=== PATIENT | male | born 1975 | race Caucasian/White ===

== ENCOUNTER 2016-10-12 19:00 | Emergency (ER) | payer SELFPAY ==
[2016-10-12] MEDS ORDERED: ASPIRIN 81 MG TABLET, CHEWABLE PO ONE ×2 (19:42→19:43)
--- NOTE | 2016-10-12 20:46 | RADIOLOGY REPORT (SQ) ---
EXAM DESCRIPTION: CHEST SINGLE VIEW COMPLETED DATE/TIME: 10/12/2016 8:36 pm REASON FOR STUDY: PAIN COMPARISON: None. EXAM PARAMETERS: NUMBER OF VIEWS: One view. TECHNIQUE: Single frontal radiographic view of the chest acquired. RADIATION DOSE: NA LIMITATIONS: None. FINDINGS: LUNGS AND PLEURA: No opacities, masses or pneumothorax. No pleural effusion. MEDIASTINUM AND HILAR STRUCTURES: No masses. Contour normal. HEART AND VASCULAR STRUCTURES: Heart normal in size. Normal vasculature. BONES: No acute findings. HARDWARE: None in the chest. OTHER: No other significant finding. IMPRESSION: NO ACUTE RADIOGRAPHIC FINDING IN THE CHEST. TECHNICAL DOCUMENTATION: JOB ID: [id number]
[2016-10-12 22:11] LABS: ABSOLUTE EOSINOPHILS # (AUTO) 0.2 10^3/uL (0.0-0.6); ABSOLUTE MONOCYTES (AUTO) 0.7 10^3/uL (0.1-1.4); ABSOLUTE NEUT (AUTO) 2.7 10^3/uL (1.7-8.2); BASOPHILS % (AUTO) 0.6 % (0-2); EOSINOPHILS % (AUTO) 4.3 % (0-6); HEMATOCRIT 41.1 % (37.9-51.0); HEMOGLOBIN 13.4 g/dL (13.5-17.0); HGB HCT DIFFERENCE -0.9; LYMPHOCYTES % (AUTO) 35.4 % (13-45); MEAN CORPUSCULAR HEMOGLOBIN 29.1 pg (27.0-33.4); MEAN CORPUSCULAR HGB CONC 32.5 g/dL (32.0-36.0); MEAN CORPUSCULAR VOLUME 90 fl (80-97); MONOCYTES % (AUTO) 11.9 % (3-13); RED BLOOD COUNT 4.59 10^6/uL (4.35-5.55); SEGMENTED NEUTROPHILS % (AUTO) 47.8 % (42-78); WHITE BLOOD COUNT 5.6 10^3/uL (4.0-10.5)
[2016-10-12 22:34] LABS: ALANINE AMINOTRANSFERASE 314 U/L (21-72); ALBUMIN 4.2 g/dL (3.5-5.0); ALKALINE PHOSPHATASE 101 U/L (38-126); ANION GAP 12 (5-19); ASPARTATE AMINO TRANSFERASE 176 U/L (17-59); BILIRUBIN,DIRECT 0.4 mg/dL (0.0-0.4); BILIRUBIN,TOTAL 0.9 mg/dL (0.2-1.3); BLOOD UREA NITROGEN 11 mg/dL (7-20); CALCIUM 9.3 mg/dL (8.4-10.2); CARBON DIOXIDE 25 mmol/L (22-30); CHLORIDE 104 mmol/L (98-107); CREATINE KINASE 59 U/L (55-170); CREATININE RESULT 0.71 mg/dL (0.52-1.25); GLUCOSE 75 mg/dL (75-110); POTASSIUM 4.5 mmol/L (3.6-5.0); SODIUM 140.8 mmol/L (137-145); TOTAL PROTEIN 7.3 g/dL (6.3-8.2)
[2016-10-12 22:47] LABS: TROPONIN I < 0.012 ng/mL
--- NOTE | 2016-10-13 01:53 | RADIOLOGY REPORT (SQ) ---
EXAM DESCRIPTION: U/S ABDOMEN LIMITED W/O DOP COMPLETED DATE/TIME: 10/13/2016 1:35 am REASON FOR STUDY: elevated lfts, epigastric pain COMPARISON: None. TECHNIQUE: Dynamic and static grayscale images acquired of the abdomen and recorded on PACS. Additio nal selected color Doppler and spectral images recorded. LIMITATIONS: None. FINDINGS: PANCREAS: No masses. Visualized pancreatic duct normal caliber. LIVER: No masses. Echotexture normal. LIVER VASCULATURE: Normal directional flow of the main portal vein and hepatic veins. GALLBLADDER: Small gallbladder sludge. The Normal wall thickness. No pericholecystic fluid. ULTRASOUND-DETECTED WATTS'S SIGN: Negative. INTRAHEPATIC DUCTS AND COMMON DUCT: CBD and intrahepatic ducts normal caliber. No filling defects. INFERIOR VENA CAVA: Normal flow. AORTA: No aneurysm. RIGHT KIDNEY: Normal size. Normal echogenicity. No solid or suspicious masses. No hydronephrosis. No calcifications. PERITONEAL AND RIGHT PLEURAL SPACE: No ascites or effusions. OTHER: No other significant findings. IMPRESSION: No acute findings. Gallbladder sludge. TECHNICAL DOCUMENTATION: JOB ID: [id number]- All Rights Reserved
[2016-10-13] MEDS ORDERED: MAG HYDROX/AL HYDROX/SIMETH SUSP 30 ML UDCUP PO ONE (02:03)
[2016-10-13] MEDS ORDERED: LIDOCAINE 2% VISCOUS SOLN 20 ML UDCUP PO ONE (02:03)
[2016-10-13] MEDS ORDERED: FAMOTIDINE 20 MG TABLET PO ONE (02:03)
[2016-10-13] MEDS ORDERED: METOCLOPRAMIDE HCL ORAL SOLN 10 MG/10 ML UDCUP PO ONE (02:03)
--- NOTE | 2016-10-13 02:04 | ER Document Report ---
ED General - General Chief Complaint: Chest Pain > 30 Stated Complaint: CHEST PAIN Time Seen by Provider: 10/13/16 00:14 Notes: Patient is a 41-year-old male, active tobacco smoker, no other past medical history who presents with 2 weeks of intermittent epigastric and right lower quadrant abdominal pain that radiates into his chest. Describes as a burning, aching pain. Notes it is worsened by eating. He has tried Tylenol any improvement of his symptoms. No history of similar symptoms in the past. He has not seen his primary care doctor regarding today's concerns. He denies any cardiac history or history of DVT or pulmonary embolus. He denies any vomiting or diarrhea. No prior history of abdominal surgeries. TRAVEL OUTSIDE OF THE [place] IN LAST 30 DAYS: No Past Medical History - General Information source: Patient - Social History Smoking Status: Current Every Day Smoker Frequency of alcohol use: Occasional Drug Abuse: None Lives with: Spouse/Significant other Family History: Reviewed & Not Pertinent Patient has suicidal ideation: No Patient has homicidal ideation: No Renal/ Medical History: Denies: Hx Peritoneal Dialysis Review of Systems - Review of Systems Notes: Constitutional: Negative for fever. HENT: Negative for sore throat. Eyes: Negative for visual changes. Cardiovascular: Positive for chest pain. Respiratory: Negative for shortness of breath. Gastrointestinal: Positive for abdominal pain, negative for vomiting or diarrhea. Genitourinary: Negative for dysuria. Musculoskeletal: Negative for back pain. Skin: Negative for rash. Neurological: Negative for headaches, weakness or numbness. 10 point ROS negative except as marked above and in HPI. Physical Exam - Vital signs Vitals: Temp Pulse Resp BP Pulse Ox 97.5 F 80 16 120/83 97 10/12/16 19:41 10/12/16 19:41 10/12/16 19:41 10/12/16 19:41 10/12/16 19:41 Interpretation: Normal Notes: PHYSICAL EXAMINATION: GENERAL: Well-appearing, well-nourished and in no acute distress. HEAD: Atraumatic, normocephalic. EYES: Pupils equal round and reactive to light, extraocular movements intact, sclera anicteric, conjunctiva are normal. ENT: nares patent, oropharynx clear without exudates. Moist mucous membranes. NECK: Normal range of motion, supple without lymphadenopathy LUNGS: Breath sounds clear to auscultation bilaterally and equal. No wheezes rales or rhonchi. HEART: Regular rate and rhythm without murmurs ABDOMEN: Soft, mild epigastric tenderness on palpation, normoactive bowel sounds. No guarding, no rebound. No masses appreciated. EXTREMITIES: Normal range of motion, no pitting or edema. No cyanosis. NEUROLOGICAL: No focal neurological deficits. Moves all extremities spontaneously and on command. PSYCH: Normal mood, normal affect. SKIN: Warm, Dry, normal turgor, no rashes or lesions noted. Course - Re-evaluation Re-evalutation: 10/13/16 02:04 Presentation of chest pain in an otherwise well appearing patient. Low clinical suspicion for ACS given clinical history, exam, EKG without ST elevations or depressions, and negative initial troponin. HEART score less than or equal to 3. PE also seems unlikely given clinical history, absence of tachycardia or dyspnea. Patient is PERC criteria negative. CXR without evidence of pneumothorax or pneumonia. No widened mediastinum. Aortic dissection also seems unlikely given history, symmetric pulses, CXR, and vitals. Overall history of epigastric abdominal pain with associated reflux symptoms most consistent with likely gastritis. Right upper quadrant ultrasound does not demonstrate any evidence of acute cholecystitis or cholelithiasis. Lipase is normal. Mild LFT elevations which patient reports could be related to prior problem drinking. Based on history and exam, I do not suspect ACS, pulmonary embolus, SBO, mesenteric ischemia, acute pancreatitis, biliary pathology, or an abdominal aortic dissection. Patient has had improvement of symptoms here with a GI cocktail. At this time will discharge with return precautions and follow-up recommendations. Verbal discharge instructions given a the bedside and opportunity for questions given. Medication warnings reviewed. Patient is in agreement with this plan and has verbalized understanding of return precautions and the need for primary care follow-up in the next 24-72 hours. HEART Score: History:0 EC Age:0 Risk Factors:1 Troponin:0 Total: 1 - Vital Signs Vital signs: Temp Pulse Resp BP Pulse Ox 98.1 F 68 20 132/68 H 100 10/13/16 02:57 10/13/16 02:57 10/13/16 02:57 10/13/16 02:57 10/13/16 02:57 - Laboratory Result Diagrams: 10/12/16 21:30 10/12/16 21:30 Laboratory results interpreted by me: 10/12/16 10/12/16 21:30 21:30 Hgb 13.4 L RDW 18.0 H AST 176 H ALT 314 H - Diagnostic Test Radiology reviewed: Image reviewed, Reports reviewed Radiology results interpreted by me: 10/13/16 02:04 Chest x-ray: No acute infiltrate or pneumothorax - EKG Interpretation by Me Additional EKG results interpreted by me: 10/13/16 03:28 Sinus bradycardia. Rate 59. No ST elevations or depressions. QTC is 405. Discharge - Discharge Clinical Impression: Upper abdominal pain Condition: Good Disposition: HOME, SELF-CARE Additional Instructions: Your symptoms appear to be most consistent with stomach or upper intestinal irritation. Your evaluation here today has not demonstrated an alternative cause for your symptoms. Please begin taking famotidine 40 mg in the morning and 40 mg at night. This medicine can be purchased directly [id number]. You may also take medicine such as Pepto-Bismol or Tums to assist with your pain. Please follow closely with your primary care doctor in the next 24-48 hours regarding today's emergency department visit. Please return immediately if you develop persistent vomiting, worsening pain, again having bloody bowel movements, develop a fever greater than 100.4F, or have any other symptoms that are worrisome to you.
[2016-10-13 02:13] LABS: ADD ON TESTING BLD IN LAB ACKNOWLEDGE
[2016-10-13 02:22] LABS: LIPASE 166.6 U/L (23-300)
[2016-10-13 02:58] VITALS: BP 132/68
--- NOTE | 2016-10-13 09:12 | EKG REPORT ---
SEVERITY:- OTHERWISE NORMAL ECG - SINUS RHYTHM BORDERLINE LEFT AXIS DEVIATION : Confirmed by: Emily Delarosa MD 13-Oct-2016 09:11:50
--- NOTE | 2016-10-13 09:12 | EKG REPORT ---
SEVERITY:- NORMAL ECG - SINUS RHYTHM : Confirmed by: Emily Delarosa MD 13-Oct-2016 09:11:53
== END 2016-10-13 02:56 | disposition home or self-care (01) ==
LOC: ER 19:00
DX: R10.10 Upper abdominal pain, unspecified (principal); R07.9 Chest pain, unspecified; R10.13 Epigastric pain; R10.31 Right lower quadrant pain; F17.200 Nicotine dependence, unspecified, uncomplicated
CPT/HCPCS: 93005; 99285; 36415; 82553; 82550; 83690; 85025; 80053; 84484; 71010; 76705; 93010; J3490

== ENCOUNTER 2016-10-14 09:57 | Emergency (ER) | payer SELFPAY ==
[2016-10-14] MEDS ORDERED: ASPIRIN 81 MG TABLET, CHEWABLE PO ONE (10:24)
--- NOTE | 2016-10-14 10:54 | ER Document Report ---
ED Medical Screen (RME) - General Chief Complaint: Chest Pain Stated Complaint: CHEST PAIN Time Seen by Provider: 10/14/16 10:50 Mode of Arrival: Ambulatory Information source: Patient Notes: 41-year-old male who was recently here and had negative cardiac enzymes 2 presents with complaints of indigestion and right-sided abdominal and chest pain. Patient notes pain worsens with eating movement I have greeted and performed a rapid initial assessment of this patient. A comprehensive ED assessment and evaluation of the patient, analysis of test results and completion of the medical decision making process will be conducted by additional ED providers. PHYSICAL EXAMINATION: GENERAL: Well-appearing, well-nourished and in no acute distress. HEAD: Atraumatic, normocephalic. EYES: Pupils equal round extraocular movements intact, conjunctiva are normal. ENT: Nares patent NECK: Normal range of motion LUNGS: No respiratory distress Musculoskeletal: Normal range of motion NEUROLOGICAL: Normal speech, normal gait. PSYCH: Normal mood, normal affect. SKIN: Warm, Dry, normal turgor, no rashes or lesions noted. TRAVEL OUTSIDE OF THE [place] IN LAST 30 DAYS: No - Related Data Allergies/Adverse Reactions: No Known Allergies Allergy (Unverified 10/14/16 10:21) Past Medical History - Social History Frequency of alcohol use: None Drug Abuse: None Renal/ Medical History: Denies: Hx Peritoneal Dialysis Past Surgical History: Reports: Hx Orthopedic Surgery - Left knee, right ankle, right elbow
[2016-10-14 12:00] LABS: ALANINE AMINOTRANSFERASE 366 U/L (21-72); ALBUMIN 4.9 g/dL (3.5-5.0); ALKALINE PHOSPHATASE 106 U/L (38-126); ANION GAP 12 (5-19); ASPARTATE AMINO TRANSFERASE 228 U/L (17-59); BILIRUBIN,DIRECT 0.3 mg/dL (0.0-0.4); BILIRUBIN,TOTAL 1.2 mg/dL (0.2-1.3); BLOOD UREA NITROGEN 8 mg/dL (7-20); CALCIUM 10.3 mg/dL (8.4-10.2); CARBON DIOXIDE 29 mmol/L (22-30); CHLORIDE 104 mmol/L (98-107); CREATINE KINASE 45 U/L (55-170); CREATININE RESULT 0.76 mg/dL (0.52-1.25); GLUCOSE 68 mg/dL (75-110); POTASSIUM 4.7 mmol/L (3.6-5.0); SODIUM 144.5 mmol/L (137-145); TOTAL PROTEIN 8.5 g/dL (6.3-8.2)
[2016-10-14] MEDS ORDERED: KETOROLAC TROMETHAMINE 60 MG/2 ML SDV IM ONE (12:09)
[2016-10-14 12:12] LABS: CREATINE KINASE MB 0.37 ng/mL (<4.55)
[2016-10-14 12:16] LABS: TROPONIN I < 0.012 ng/mL
--- NOTE | 2016-10-14 12:16 | ER Document Report ---
ED General - General Chief Complaint: Chest Pain Stated Complaint: CHEST PAIN Time Seen by Provider: 10/14/16 10:50 Mode of Arrival: Ambulatory Information source: Patient Notes: Presents emergency department with complaints of right-sided chest pain that radiates up to his shoulder. Patient was evaluated and treated for same symptoms 2 days ago here in the emergency department. He reports the pain comes and goes. He reports dull ache constantly with times of sharp spikes. He reports that sharp pain in the front and the back on his right side. He also reports that it hurts to laugh and cough. He reports the pain increases whenever he tries to eat. 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 Patient also reports he is a heavy drinker. He recently moved here from [place] to be requested to start tomorrow with his brother. He reports he has developed waking one time since he arrived. Patient is laughing in no distress. 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 He reports he has done this for many years without problems. Denies recent trauma. TRAVEL OUTSIDE OF THE [place] IN LAST 30 DAYS: No - HPI Onset: Other Onset/Duration: Persistent Quality of pain: Dull, Sharp Severity: Severe Pain Level: 4 Associated symptoms: Nausea Exacerbated by: Coughing, Deep breathing, Other - laughing Relieved by: Denies Similar symptoms previously: Yes Recently seen / treated by doctor: Yes - Related Data Allergies/Adverse Reactions: No Known Allergies Allergy (Unverified 10/14/16 10:21) Past Medical History - General Information source: Patient - Social History Smoking Status: Current Every Day Smoker Frequency of alcohol use: None Drug Abuse: None Lives with: Family - brother Family History: Reviewed & Not Pertinent Patient has suicidal ideation: No Patient has homicidal ideation: No Renal/ Medical History: Denies: Hx Peritoneal Dialysis Psychiatric Medical History: Reports: Other - TBI Past Surgical History: Reports: Hx Orthopedic Surgery - Left knee, right ankle, right elbow Review of Systems - Review of Systems Notes: Review HPI for review of systems., All other systems negative Physical Exam - Vital signs Vitals: Pulse Ox 98 10/14/16 11:30 - Notes Notes: PHYSICAL EXAMINATION: GENERAL: No acute distress HEAD: Atraumatic, normocephalic. EYES: Pupils equal round and reactive to light, extraocular movements intact, sclera anicteric, conjunctiva are normal. ENT: nares patent, +dental decay. Moist mucous membranes. NECK: Normal range of motion, supple without lymphadenopathy LUNGS: CTAB and equal. No wheezes rales or rhonchi. nontender to palpation HEART: Regular rate and rhythm without murmurs ABDOMEN: Soft, RUQ, epigastric tenderness. No guarding, no rebound BACK: Denies pain with palpation EXTREMITIES: Normal range of motion, no pitting edema. No cyanosis. NEUROLOGICAL: Cranial nerves grossly intact. Normal sensory/motor exams. PSYCH: Normal mood, normal affect. SKIN: Warm, Dry, normal turgor, no rashes or lesions noted Course - Re-evaluation Re-evalutation: 10/14/16 13:00 Symptoms consistent with gallbladder disease. Ultrasound notes gallbladder sludge. AST ALT elevated today. Patient instructed on LABS. INSTRUCTED ON bentyl, LOW-FAT DIET IMPORTANCE OF FOLLOW-UP WITH SURGEON. HE VERBALIZED UNDERSTANDING TO ALL INSTRUCTIONS. - Vital Signs Vital signs: Temp Pulse Resp BP Pulse Ox 98 F 70 16 112/78 98 10/14/16 14:27 10/14/16 14:27 10/14/16 14:27 10/14/16 14:27 10/14/16 14:27 - Laboratory Result Diagrams: 10/14/16 12:35 10/14/16 11:09 Laboratory results interpreted by me: 10/14/16 10/14/16 11:09 12:35 RDW 18.1 H Glucose 68 L Calcium 10.3 H AST 228 H ALT 366 H Creatine Kinase 45 L Total Protein 8.5 H - Diagnostic Test Radiology reviewed: Image reviewed, Reports reviewed - GB Sludge - EKG Interpretation by Me EKG shows normal: Sinus rhythm - SR no elevation or depression Discharge - Discharge Clinical Impression: Gallbladder disease, Elevated liver enzymes, Right-sided chest pain Condition: Stable Disposition: HOME, SELF-CARE Instructions: Antispasmodics ([facility]), Gallbladder Disease ([facility]), Gastroenterology , Surgeon, Low-Fat Diet ([facility]), Liver Function Abnormality ([facility]) Additional Instructions: *You have been evaluated for abdominal pain, Right side chest pain, gallbladder disease- sludge, elevated liver enzymes *A Hepatitis panel is pending. You will be contacted if it is positive. *Take medication as prescribed *Follow up with a primary care provider within one week *Follow up with a surgeon to discuss gallbladder sludge *Maintain a low fat diet *Return to ED for worsening condition, changes, needs *Return to ED if not better in 24 hours Prescriptions: Dicyclomine HCl [Bentyl 20 mg Tablet] 20 mg PO TID #30 tablet
[2016-10-14 12:49] LABS: ABSOLUTE EOSINOPHILS # (AUTO) 0.1 10^3/uL (0.0-0.6); ABSOLUTE LYMPHOCYTES (AUTO) 1.2 10^3/uL (0.5-4.7); ABSOLUTE MONOCYTES (AUTO) 0.4 10^3/uL (0.1-1.4); ABSOLUTE NEUT (AUTO) 3.5 10^3/uL (1.7-8.2); BASOPHILS % (AUTO) 0.9 % (0-2); HEMATOCRIT 44.1 % (37.9-51.0); HEMOGLOBIN 14.4 g/dL (13.5-17.0); HGB HCT DIFFERENCE -0.9; LYMPHOCYTES % (AUTO) 22.9 % (13-45); MEAN CORPUSCULAR HEMOGLOBIN 29.3 pg (27.0-33.4); MEAN CORPUSCULAR HGB CONC 32.6 g/dL (32.0-36.0); MEAN CORPUSCULAR VOLUME 90 fl (80-97); MONOCYTES % (AUTO) 8.3 % (3-13); RED BLOOD COUNT 4.91 10^6/uL (4.35-5.55); RED CELL DISTRIBUTION WIDTH 18.1 % (11.5-14.0); SEGMENTED NEUTROPHILS % (AUTO) 65.9 % (42-78); WHITE BLOOD COUNT 5.3 10^3/uL (4.0-10.5)
[2016-10-14] MEDS ORDERED: KETOROLAC TROMETHAMINE INJ/PF 30 MG/1 ML SDV IV ONE (12:58)
--- NOTE | 2016-10-14 13:32 | RADIOLOGY REPORT (SQ) ---
EXAM DESCRIPTION: U/S ABDOMEN LIMITED W/O DOP COMPLETED DATE/TIME: 10/14/2016 1:22 pm REASON FOR STUDY: RUQ pain COMPARISON: 10/13/2016 TECHNIQUE: Dynamic and static grayscale images acquired of the abdomen and recorded on PACS. Willyo joanne selected color Doppler and spectral images recorded. LIMITATIONS: None. FINDINGS: PANCREAS: No masses. Visualized pancreatic duct normal caliber. LIVER: No masses. Echotexture normal. LIVER VASCULATURE: Normal directional flow of the main portal vein and hepatic veins. GALLBLADDER: Small amount of gallbladder sludge. Normal wall thickness. No pericholecystic fluid. ULTRASOUND-DETECTED WATTS'S SIGN: Negative. INTRAHEPATIC DUCTS AND COMMON DUCT: CBD and intrahepatic ducts normal caliber. No filling defects. INFERIOR VENA CAVA: Normal flow. AORTA: No aneurysm. RIGHT KIDNEY: Normal size. Normal echogenicity. No solid or suspicious masses. No hydronephrosis. No calcifications. PERITONEAL AND RIGHT PLEURAL SPACE: No ascites or effusions. OTHER: No other significant findings. IMPRESSION: Small amount of gallbladder sludge. No acute abnormality. No significant change from p rior study. TECHNICAL DOCUMENTATION: JOB ID: [id number] [employer]- All Rights Reserved
--- NOTE | 2016-10-14 13:48 | RADIOLOGY REPORT (SQ) ---
EXAM DESCRIPTION: CHEST PA/LAT COMPLETED DATE/TIME: 10/14/2016 1:32 pm REASON FOR STUDY: chest pain COMPARISON: 10/12/2016 EXAM PARAMETERS: NUMBER OF VIEWS: two views TECHNIQUE: Digital Frontal and Lateral radiographic views of the chest acquired. RADIATION DOSE: NA LIMITATIONS: none FINDINGS: LUNGS AND PLEURA: No opacities, masses or pneumothorax. No pleural effusion. MEDIASTINUM AND HILAR STRUCTURES: No masses or contour abnormalities. HEART AND VASCULAR STRUCTURES: Heart normal size. No evidence for failure. BONES: No acute findings. HARDWARE: None in the chest. OTHER: No other significant finding. IMPRESSION: NO SIGNIFICANT RADIOGRAPHIC FINDING IN THE CHEST. TECHNICAL DOCUMENTATION: JOB ID: [id number] [employer]- All Rights Reserved
[2016-10-14 14:28] VITALS: BP 112/78
--- NOTE | 2016-10-15 11:04 | EKG REPORT ---
SEVERITY:- ABNORMAL ECG - SINUS RHYTHM LEFT ANTERIOR FASCICULAR BLOCK : Confirmed by: Emily Delarosa MD 15-Oct-2016 11:03:42
== END 2016-10-14 14:29 | disposition home or self-care (01) ==
LOC: ER 09:57
DX: K82.9 Disease of gallbladder, unspecified (principal); R74.8 Abnormal levels of other serum enzymes; R07.9 Chest pain, unspecified; R11.0 Nausea; F17.200 Nicotine dependence, unspecified, uncomplicated; Z87.820 Personal history of traumatic brain injury
CPT/HCPCS: 93005; 99285; 96374; 36415; 82553; 82550; 83690; 85025; 80053; 84484; 80074; 71020; 76705; 93010; J1885

== ENCOUNTER 2017-04-26 19:22 | Emergency (ER) | payer SELFPAY ==
[2017-04-26] MEDS ORDERED: NORMAL SALINE 1000 ML 1,000 ML IV ONE (20:14)
--- NOTE | 2017-04-26 20:15 | ER Document Report ---
ED Medical Screen (RME) - General Chief Complaint: ETOH Abuse Stated Complaint: ALCOHOL WITHDRAWAL Time Seen by Provider: 04/26/17 20:13 Notes: Patient presents stating that he needs help with alcohol abuse. He states he also has problems with depression. He states he has tried to commit suicide in the past does not currently feel suicidal. TRAVEL OUTSIDE OF THE [place] IN LAST 30 DAYS: No - Related Data Allergies/Adverse Reactions: No Known Allergies Allergy (Unverified 10/14/16 10:21) Past Medical History - Social History Frequency of alcohol use: Heavy Drug Abuse: Marijuana Renal/ Medical History: Denies: Hx Peritoneal Dialysis Past Surgical History: Reports: Hx Orthopedic Surgery - Left knee, right ankle, right elbow Physical Exam - Vital signs Vitals: Temp Pulse Resp BP Pulse Ox 98.4 F 84 20 116/84 98 04/26/17 19:30 04/26/17 19:30 04/26/17 19:30 04/26/17 19:30 04/26/17 19:30 Course - Vital Signs Vital signs: Temp Pulse Resp BP Pulse Ox 98.4 F 84 20 116/84 98 04/26/17 19:30 04/26/17 19:30 04/26/17 19:30 04/26/17 19:30 04/26/17 19:30
[2017-04-26 20:47] LABS: APPEARANCE,URINE CLEAR; BILIRUBIN,URINE NEGATIVE (NEGATIVE); GLUCOSE, URINE NEGATIVE (NEGATIVE); KETONES,URINE NEGATIVE (NEGATIVE); LEUKOCYTE ESTERASE,URINE NEGATIVE (NEGATIVE); NITRITE,URINE NEGATIVE (NEGATIVE); PROTEIN,URINE NEGATIVE (NEGATIVE); URINE SPECIFIC GRAVITY 1.015; UROBILINOGEN,URINE NEGATIVE mg/dL (<2.0)
[2017-04-26 20:58] LABS: URINE BARBITURATES SCREEN NEGATIVE; URINE METHADONE SCREEN NEGATIVE; URINE OPIATES LOW NEGATIVE; URINE PHENCYCLIDINE SCREEN NEGATIVE
[2017-04-26] MEDS ORDERED: GABAPENTIN 300 MG CAPSULE PO ONE (22:27)
--- NOTE | 2017-04-26 23:04 | RADIOLOGY REPORT (SQ) ---
EXAM DESCRIPTION: CT HEAD WITHOUT CLINICAL HISTORY: 42 years Male, trauma COMPARISON: None. TECHNIQUE: No contrast. This exam was performed according to our departmental dose-optimization program, which includes automated exposure control, adjustment of the mA and/or kV according to patient size and/or use of iterative reconstruction technique. FINDINGS: Brain parenchyma appears intact. No evidence of hemorrhage or infarct. No mass, mass effect, or midline shift. A 0.8 cm right maxillary retention cyst-mucocele. Extra-axial structures are otherwise grossly intact. IMPRESSION: No acute findings.
--- NOTE | 2017-04-26 23:07 | RADIOLOGY REPORT (SQ) ---
EXAM DESCRIPTION: RIBS LEFT W/PA CHEST CLINICAL HISTORY: 42 years, Male, trauma COMPARISON: None. NUMBER OF VIEWS:3 LIMITATIONS: None. FINDINGS: Mild deformity of the left fifth and sixth ribs posterolaterally may indicate prior injury. No evidence of significant displaced fracture. No pneumothorax. No acute cardiopulmonary findings. IMPRESSION: No acute cardiopulmonary findings.Mild deformity of the left fifth and sixth ribs posterolaterally may indicate prior injury. 2011 [employer]- All Rights Reserved
[2017-04-26] MEDS ORDERED: ACETAMINOPHEN 325 MG TABLET PO ONE (23:21)
--- NOTE | 2017-04-27 00:50 | ER Document Report ---
ED General - General Chief Complaint: ETOH Abuse Stated Complaint: ALCOHOL WITHDRAWAL Time Seen by Provider: 04/26/17 20:13 Notes: Patient is a 42-year-old male with a history of alcoholism who presents to the ER saying that his brother made him come to the ER to seek help with alcoholism. He says that he prefers to do outpatient therapy. He says he does not feel he needs out inpatient therapy. He says he drinks either three 40s of beer a day or some vodka. Says he has been doing this for many years. He says he has quit several times. He says he is able to quit. He says he does have some depression. He says he is not suicidal. He says depression is chronic. He says he will not hurt himself and has no plan to hurt himself. He has no other complaints at this time. TRAVEL OUTSIDE OF THE [place] IN LAST 30 DAYS: No - Related Data Allergies/Adverse Reactions: No Known Allergies Allergy (Unverified 10/14/16 10:21) Past Medical History - Social History Smoking Status: Current Every Day Smoker Frequency of alcohol use: Heavy Drug Abuse: Marijuana Family History: Reviewed & Not Pertinent Patient has suicidal ideation: No Patient has homicidal ideation: No Renal/ Medical History: Denies: Hx Peritoneal Dialysis Past Surgical History: Reports: Hx Orthopedic Surgery - Left knee, right ankle, right elbow Review of Systems - Review of Systems Notes: My Normal Review Basic REVIEW OF SYSTEMS: CONSTITUTIONAL : Denies fever, chills, or sweats. Denies recent illness. RESPIRATORY: Denies cough, cold, or chest congestion. Denies shortness of breath, difficulty breathing, or wheezing. GASTROINTESTINAL: Denies abdominal pain. Denies nausea, vomiting, or diarrhea. MUSCULOSKELETAL: Denies neck or back pain or joint pain or swelling. SKIN: Denies rash or skin lesions. NEUROLOGICAL: Denies altered mental status or loss of consciousness. Denies headache. Denies weakness or paralysis or loss of use of either side. Denies problems with gait or speech. Denies sensory or motor loss. PSYCHIATRIC: Depression without suicidal ideations. ALL OTHER SYSTEMS REVIEWED AND NEGATIVE. Physical Exam - Vital signs Vitals: Temp Pulse Resp BP Pulse Ox 98.4 F 84 20 116/84 98 04/26/17 19:30 04/26/17 19:30 04/26/17 19:30 04/26/17 19:30 04/26/17 19:30 - Notes Notes: General Appearance: Well nourished, alert, cooperative, no acute distress, no obvious discomfort. Vitals: reviewed, See vital signs table. Head: no swelling or tenderness to the head Eyes: PERRL, EOMI, Conjuctiva clear Mouth: No decreasd moisture Lungs: No wheezing, No rales, No rhonci, No accessory muscle use, good air exchange bilaterally. Heart: Normal rate, Regular rythm, No murmur, no rub Abdomen: Normal BS, soft, No rigidity, No abdominal tenderness, No guarding, no rebound, no abdominal masses, no organomegaly Extremities: strength 5/5 in all extremities, good pulses in all extremities, no swelling or tenderness in the extremities, no edema. Skin: warm, dry, appropriate color, no rash Neuro: speech clear, oriented x 3, normal affect, responds appropriately to questions. Psychiatric: Makes good eye contact. Is not tearful. Able to form appropriate thought process. Course - Re-evaluation Re-evalutation: 04/29/17 22:08 Patient did have a small scrape left-sided face he said which from a fall previously. She agreed to allow us to do a CT scan of his head. He also had some pain over the ribs. There is no pain to the abdomen. X-rays obtained show no evidence of rib fracture. Patient is gabapentin due to history of chronic neuropathy. Says it is ran out. He does admit that this does seem to help keep him from having with withdrawal and also helps him be able to stop alcohol user. I will represcribed his gabapentin. He is on 300 mg 3 times a day. I have provided him information for [facility] for outpatient alcohol rehab as he requested. He also agrees to follow-up with Alcoholics Anonymous. I strongly encourage him return to ER anytime as we are happy to care form and take care of him and help him in a way we can. Patient shows appreciation of this and agrees with plan will be discharged home. Patient strongly encouraged to return to ER if he has worsening depression or any thoughts of suicide. Dictation of this chart was performed using voice recognition software; therefore, there may be some unintended grammatical errors. 04/29/17 22:09 - Vital Signs Vital signs: Temp Pulse Resp BP Pulse Ox 98.1 F 105 H 20 111/63 96 04/27/17 01:17 04/27/17 01:17 04/27/17 01:17 04/27/17 01:17 04/27/17 01:17 Discharge - Discharge Clinical Impression: Alcohol abuse Contusion of rib on left side Qualifiers: Encounter type: initial encounter Qualified Code(s): S20.212A - Contusion of left front wall of thorax, initial encounter Condition: Good Disposition: HOME, SELF-CARE Additional Instructions: Please take the gabapentin as prescribed. Please take the coupon to [facility] so you can get the medication for the listed do of $12.02. Please follow up with RON and RITA. I have include a paper with information for [facility]. PLease return to the ER if you have thoughts of suicide, tremors, headache, feelings of withdrawl, or if you feel unwell. Please use the incentive spirometer to take a deep breath once every 30 minutes to help prevent pneumonia. Please return to the ER if you have difficulty breathing, fevers, or feel unwell. Prescriptions: Gabapentin 300 mg PO TID #90 capsule Forms: Return to Work
[2017-04-27 01:18] VITALS: BP 111/63
== END 2017-04-27 00:57 | disposition home or self-care (01) ==
LOC: ER 19:22
DX: F10.20 Alcohol dependence, uncomplicated (principal); G62.9 Polyneuropathy, unspecified; T42.6X6A Underdosing of other antiepileptic and sedative-hypnotic drugs, initial encounter; Z91.128 Patient's intentional underdosing of medication regimen for other reason; Z91.14 Patient's other noncompliance with medication regimen; F12.10 Cannabis abuse, uncomplicated; F32.9 Major depressive disorder, single episode, unspecified; S20.212A Contusion of left front wall of thorax, initial encounter; S00.81XA Abrasion of other part of head, initial encounter; R07.81 Pleurodynia; W19.XXXA Unspecified fall, initial encounter; F17.200 Nicotine dependence, unspecified, uncomplicated
CPT/HCPCS: 70450; 80307; 81001; 99284

== ENCOUNTER 2017-08-16 15:32 | Emergency (ER) | payer OTHER ==
[2017-08-16] MEDS ORDERED: LIDOCAINE 5% (700 MG) TRANSDERMAL ADH..PATCH TP ONE (16:43)
[2017-08-16] MEDS ORDERED: HYDROCODONE/ACETAMINOPHEN 5-325 MG TABLET PO ONE (16:43)
--- NOTE | 2017-08-16 16:44 | ER Document Report ---
HPI - HPI Patient complains to provider of: Rib pain Onset: This morning Onset/Duration: Sudden Quality of pain: Achy Pain Level: 5 Context: Patient states that he coughed and then sneezed and felt a sudden pop in the left rib area. Patient states he has had persistent pain since then. Patient without any shortness of breath. Associated Symptoms: Chest pain - Left lateral rib pain, Nonproductive cough. denies: Fever Exacerbated by: Denies Relieved by: Denies Similar symptoms previously: No Recently seen / treated by doctor: No - ROS ROS below otherwise negative: Yes Systems Reviewed and Negative: Yes All other systems reviewed and negative - CONSTITUTIONAL Constitutional: DENIES: Fever, Chills - NEURO Neurology: DENIES: Headache - CARDIOVASCULAR Cardiovascular: REPORTS: Chest pain - Left rib tenderness - RESPIRATORY Respiratory: REPORTS: Coughing - GASTROINTESTINAL Gastrointestinal: DENIES: Abdominal Pain, Nausea - MUSCULOSKELETAL Musculoskeletal: DENIES: Extremity pain, Back Pain - DERM Skin Color: Normal Skin Problems: None Past Medical History - General Information source: Patient - Social History Smoking Status: Current Every Day Smoker Frequency of alcohol use: None Drug Abuse: None Occupation: None Family History: Reviewed & Not Pertinent - Medical History Medical History: Negative Renal/ Medical History: Denies: Hx Peritoneal Dialysis Past Surgical History: Reports: Hx Orthopedic Surgery - Left knee, right ankle, right elbow Vertical Provider Document - CONSTITUTIONAL Agree With Documented VS: Yes Exam Limitations: No Limitations General Appearance: WD/WN, No Apparent Distress - INFECTION CONTROL TRAVEL OUTSIDE OF THE [place] IN LAST 30 DAYS: No - HEENT HEENT: Atraumatic, Normal ENT Exam, Normocephalic - NECK Neck: Normal Inspection, Supple. negative: Lymphadenopathy-Left, Lymphadenopathy-Right - RESPIRATORY Respiratory: No Respiratory Distress, Chest Non-Tender - Left lateral rib tenderness to 4 through 6 rib area, no crepitus, no ecchymosis, no subcutaneous emphysema. negative: Rales, Rhonchi - CARDIOVASCULAR Cardiovascular: Regular Rate, Regular Rhythm, No Murmur - GI/ABDOMEN Gastrointestinal: Abdomen Soft, Abdomen Non-Tender, No Organomegaly - BACK Back: Normal Inspection - MUSCULOSKELETAL/EXTREMETIES Musculoskeletal/Extremeties: DAHIANA PRADHAN - NEURO Level of Consciousness: Awake, Alert, Appropriate Motor/Sensory: No Motor Deficit - DERM Integumentary: Warm, Dry, No Rash Course - Re-evaluation Re-evalutation: 08/16/17 17:44 Patient's respirations unlabored, patient nontoxic in appearance. Vital signs stable. No concern for pneumothorax, rib fracture or pneumonia. Discussed results of x-ray with patient. Patient encouraged to follow-up with primary doctor for recheck. - Vital Signs Vital signs: Temp Pulse Resp BP Pulse Ox 97.7 F 80 16 107/60 95 08/16/17 15:51 08/16/17 15:51 08/16/17 15:51 08/16/17 15:51 08/16/17 15:51 - Diagnostic Test Radiology reviewed: Image reviewed, Reports reviewed Discharge - Discharge Clinical Impression: Rib pain on left side Condition: Stable Disposition: HOME, SELF-CARE Instructions: Anti-Inflammatory Medication ([facility]), Chest Wall Pain ([facility]), Muscle Relaxers ([facility]) Additional Instructions: Return immediately for any new or worsening symptoms Followup with your primary care provider, call tomorrow to make a followup appointment Prescriptions: Cyclobenzaprine HCl [Flexeril 10 Mg Tablet] 10 mg PO TID #15 tablet Naproxen [Naprosyn 250 Nmg Tablet] 1 tab PO BID #14 tablet Forms: Smoking Cessation Education Referrals: MARILUZ SEALS MD [Primary Care Provider] - Follow up as needed
--- NOTE | 2017-08-16 17:28 | RADIOLOGY REPORT (SQ) ---
EXAM DESCRIPTION: RIBS LEFT W/PA CHEST COMPLETED DATE/TIME: 08/16/2017 5:07 pm REASON FOR STUDY: rib pain COMPARISON: 04/26/2017. TECHNIQUE: Frontal view of the chest and additional views of the left ribs acquired. NUMBER OF VIEWS: Three view. LIMITATIONS: None. FINDINGS: FRONTAL CXR: No pneumothorax. No pleural effusion. No atelectasis or infiltrates. RIBS: No displaced rib fractures. No lytic or blastic bony lesions. 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 OTHER: No other significant finding. IMPRESSION: NO PNEUMOTHORAX. NO DISPLACED RIB FRACTURES. COMMENT: SITE OF TRAUMA/COMPLAINT MARKED/STAMP COMPLETED: YES. TECHNICAL DOCUMENTATION: JOB ID: [id number] [employer]- All Rights Reserved Reading location - IP/workstation name: [email or web address]
[2017-08-16 18:05] VITALS: BP 109/72
== END 2017-08-16 18:05 | disposition home or self-care (01) ==
LOC: ER 15:32
DX: R07.81 Pleurodynia (principal); R05 Cough; F17.200 Nicotine dependence, unspecified, uncomplicated
CPT/HCPCS: 99283